=== PATIENT | male | born 1980 | race Caucasian/White ===

== ENCOUNTER 2017-04-11 05:36 | Day surgery (SDC) | payer MEDICAID ==
[2017-04-10 14:55] LABS: HEMATOCRIT 42.8 % (42.0-54.0); HEMOGLOBIN 14.5 g/dL (13.5-17.5); MCHC 33.9 g/dL (31.0-37.0); MCV 88.6 fL (80.0-100.0); MEAN PLATELET VOLUME 9.3 fL (7.4-10.4); RBC 4.83 10x6/uL (4.20-6.10); RDW 13.7 % (11.5-14.5); WBC 12.9 10x3/uL (4.8-10.8)
[2017-04-10 15:10] LABS: ANION GAP 12.6 mmol/L (8-16); CALCIUM 9.2 mg/dL (8.5-10.1); CARBON DIOXIDE 29.2 mmol/L (21.0-32.0); CREATININE - SERUM 1.3 mg/dL (0.6-1.3); POTASSIUM - SERUM 3.8 mmol/L (3.5-5.1)
[~2017-04-11 05:36] MED LIST: AMBIEN10 MG PO; COMBIVENT RESPIM4 GM INH; FENOFIBRATE160 MG PO; HYDROCODONE-APA1 TAB PO; K-DUR20 MEQ PO; LASIX80 MG PO; MOBIC7.5 MG PO; RITALIN10 MG PO; TESTOSTERON200 MG/ML IM; TOPAMAX100 MG PO; VASOTEC20 MG PO; VITAMIN D250000 UNIT PO; XANAX2 MG PO
[2017-04-11 08:53] VITALS: BP 116/69; BMI 56.3
[2017-04-11] MEDS ORDERED: BACTRIM DS TABL1 TAB PO (14:05)
[2017-04-11] MEDS ORDERED: PERCOCET 10/3251 TA1 PO (14:05)
--- NOTE | 2017-04-11 14:21 | NUR ---
THE PATIENT HAS CHRONIC BACK PAIN AND SLEEP APNEA. NARCOLEPTIC HX WELL
--- NOTE | 2017-04-11 14:26 | NUR ---
THE PATIENT REQUESTS TO GO BACK TO OUTPATIENT
--- NOTE | 2017-04-11 18:54 | OP ---
PATIENT NAME: ADAM VEGAS MEDICAL RECORD: [id number] :76 LOCATION:[facility] ADMISSION DATE: SURGEON: TAM KEVIN, DATE OF OPERATION: 04/11/2017 PROCEDURE PERFORMED: Right lateral epicondylectomy. PREOPERATIVE DIAGNOSIS: Right lateral epicondylitis. POSTOPERATIVE DIAGNOSIS: Right lateral epicondylitis. INDICATIONS: Mr. Vegas is a right hand dominant 36-year-old male who presented to my office with about 6 months of right lateral elbow pain. He says that he had tried an injection prior, but it did not help. We tried another injection in the office and did not help. After that, we got an MRI, which demonstrated an extensor tendon tear of the lateral epicondyle indicating lateral epicondylitis or tennis elbow. I asked him what he wanted to do. Due to his size, he would be at risk for surgery, but he wanted to proceed forward with surgery. DESCRIPTION OF PROCEDURE: The patient was given a block in the preoperative area by anesthesia, given antibiotic before incision and was taken to the room and placed in supine position with a ramp under his back due to his large body habitus and back pain. Once this was done, the right arm was prepped and draped in sterile fashion. Tourniquet was placed above the elbow prior to being draped and a timeout was performed, everyone was in agreement with the correct side, site and the patient. The Esmarch was used to exsanguinate the upper extremity and the tourniquet was inflated for approximately 15 minutes. An incision was made over the lateral epicondyle and dissection was carefully made down to it, splitting the extensor carpi radialis longus and extensor digitorum communis and noting the worn tendon of the extensor carpi radialis brevis underneath that as well as a spur on the lateral epicondyle. A rongeur was taken to the spur on the lateral epicondyle. This was removed, had good bleeding bone. Once this was done and the diseased tendon was excised, the interval there was closed with 0 Vicryl in a [id number] pattern and then the tourniquet was let down and coagulation was made with a Bovie and the skin was closed with 2-0 Vicryl in inverted interrupted fashion and then a 4-0 Monocryl was run subcuticularly into the skin. Steri-Strips were placed on top of that. Adaptic, 4 x 4, Webril and a Coban was lightly placed over the elbow and the patient was placed in a cock-up wrist splint. Once this was done, the patient was awakened and taken to recovery in stable condition. Blood loss was minimal. 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
--- NOTE | 2017-04-11 20:51 | NUR ---
1530 IV DC WITH CATHER TIP INTACT
== END 2017-04-11 16:00 | disposition home or self-care (01) ==
LOC: D.OPS 05:36 → D.PAN 09:45 → D.OPS 10:15
PROVIDERS: Anesthesiology
DX: M77.11 Lateral epicondylitis, right elbow (principal); J45.909 Unspecified asthma, uncomplicated; I10 Essential (primary) hypertension; G47.30 Sleep apnea, unspecified; K21.9 Gastro-esophageal reflux disease without esophagitis; E66.01 Morbid (severe) obesity due to excess calories; Z68.43 Body mass index [BMI] 50.0-59.9, adult; Z01.812 Encounter for preprocedural laboratory examination